=== PATIENT | male | born 1955 | race Caucasian/White ===

== ENCOUNTER 2018-03-28 03:08 | Emergency (ER) | payer OTHER ==
[~2018-03-28] VITALS: Ht 185.4 cm; Wt 79.4 kg
[2018-03-28] MEDS ORDERED: [UNRECOGNIZED DRUG - OTHER] (03:40)
[2018-03-28] MEDS ORDERED: NORFLEX100MG PO (05:25)
[2018-03-28] MEDS ORDERED: KETO10TA2 PO (05:25)
== END 2018-03-28 05:32 | disposition home or self-care (01) ==
LOC: ER 03:08
DX: M25.572 Pain in left ankle and joints of left foot (principal); M25.571 Pain in right ankle and joints of right foot; M54.5 Low back pain

== ENCOUNTER → 2018-05-11 | Emergency (ER) | payer OTHER ==
[~2018-05-11] VITALS: Ht 182.9 cm; Wt 90.7 kg
[~2018-05-11] MED LIST: KETO10TA2 PO; NORFLEX100MG PO; [UNRECOGNIZED DRUG - OTHER]
== END | disposition left against medical advice (07) ==
LOC: ER 23:17
DX: Z53.20 Procedure and treatment not carried out because of patient's decision for unspecified reasons (principal)

== ENCOUNTER 2018-05-26 05:53 | Emergency (ER) | payer OTHER ==
[~2018-05-26] VITALS: Ht 182.9 cm; Wt 77.1 kg
== END 2018-05-26 09:38 | disposition home or self-care (01) ==
LOC: ER 05:53
DX: F06.4 Anxiety disorder due to known physiological condition (principal)

== ENCOUNTER 2018-08-20 01:54 | Emergency (ER) | payer OTHER ==
[~2018-08-20] VITALS: Ht 182.9 cm; Wt 76.2 kg
[2018-08-20] MEDS ORDERED: VISTARIL50 MG PO (03:59)
[2018-08-20] MEDS ORDERED: KETO10TA2 PO (03:59)
== END 2018-08-20 04:35 | disposition home or self-care (01) ==
LOC: ER 01:54
DX: M54.5 Low back pain (principal); F06.4 Anxiety disorder due to known physiological condition